=== PATIENT | male | born 1965 | race Two or more races ===

== ENCOUNTER 2022-11-08 18:11 | Emergency (ER) | payer SELFPAY ==
[~2022-11-08] VITALS: Ht 182.9 cm; Wt 95.4 kg
[2022-11-08 18:20] VITALS: BP 120/74; PULSE 100; RESP 18; O2SAT 97
== END 2022-11-09 00:01 | disposition left against medical advice (07) ==
LOC: ER 18:11
DX: S90.466A Insect bite (nonvenomous), unspecified lesser toe(s), initial encounter (principal); Z53.21 Procedure and treatment not carried out due to patient leaving prior to being seen by health care provider; W57.XXXA Bitten or stung by nonvenomous insect and other nonvenomous arthropods, initial encounter; Y93.89 Activity, other specified; Y92.89 Other specified places as the place of occurrence of the external cause; Y99.8 Other external cause status